=== PATIENT | male | born 1965 | race Caucasian/White ===

== ENCOUNTER → 2019-08-31 18:38 | Outpatient (ROUT) | payer OTHER, SELFPAY ==
[2019-08-31 19:14] LABS: Add Manual Diff / Slide Review NO; Basophils Absolute Auto 100 /uL (0-100); Basophils Percent Auto 0.9 % (0-2); Eosinophils Absolute Auto 100 /uL (0-450); Eosinophils Percent Auto 1.4 % (2-4); Hemoglobin 15.8 g/dL (13.5-17.5); Lymphocytes Absolute Auto 2000 /uL (1100-4500); Lymphocytes Percent Auto 32.8 % (25-40); Mean Corpuscular HGB Conc 33.7 % (30-36); Mean Corpuscular Hemoglobin 31.1 PG (26-34); Mean Corpuscular Volume 92.4 fL (80-100); Monocytes Absolute Auto 500 /uL (0-900); Monocytes Percent Auto 8.5 % (3-14); Neutrophils Absolute Auto 3400 /uL (1500-7000); Neutrophils Percent Auto 56.4 % (50-75); Platelet Count 277 X10^3/uL (150-400); Red Blood Cell Count 5.09 X10^6/uL (4.5-5.9); Red Cell Distribution Width 13.9 % (11.6-14.8)
[2019-08-31 19:37] LABS: Alanine Aminotransferase 29 IU/L (<50); Albumin 4.8 g/dL (3.5-5.0); Albumin Globulin Ratio 1.7 (1.0-2.8); Alkaline Phosphatase 65 U/L (38-126); Aspartate Aminotransferase 32 IU/L (17-59); BUN Creatinine Ratio 13.1 (6-22); Bilirubin Total 0.5 mg/dL (0.2-1.3); Blood Urea Nitrogen 14 mg/dL (9-20); Calcium 9.8 mg/dL (8.4-10.2); Carbon Dioxide 28 mmol/L (22-32); Chloride 105 mmol/L (98-107); Cholesterol 239 mg/dL (140-199); Estimated Glomerular Filt Rate > 60.0 mL/min (>60); Globulin 2.9 g/dL (1.7-4.1); Glucose 92 mg/dL (70-100); HDL Cholesterol 43 mg/dL (40-60); HEMOLYSIS < 15 (0-50); LDL Cholesterol Calculated 167 mg/dL (<100); Potassium 3.9 mmol/L (3.4-5.1); Sodium 142 mmol/L (137-145); Total Protein 7.7 g/dL (6.3-8.2); Triglycerides 146 mg/dL (35-150)
[2019-08-31 20:08] LABS: Prostate Specific Antigen 0.777 ng/mL (0.10-4.00); TSH w/ Reflex to FT4 3.11 uIU/mL (0.47-4.68)
== END ==
PROVIDERS: Visit Provider Internal Medicine
DX: Z00.00 Encounter for general adult medical examination without abnormal findings (principal); R53.83 Other fatigue
CPT/HCPCS: 80053; 80061; 84153; 84443; 85025

== ENCOUNTER → 2021-10-20 16:48 | Outpatient (CLI) | payer OTHER, SELFPAY ==
[2021-10-20 17:56] LABS: Hematocrit 46.7 % (41-53); Mean Corpuscular HGB Conc 34.2 % (30-36); Mean Corpuscular Hemoglobin 31.3 PG (26-34); Mean Corpuscular Volume 91.4 fL (80-100); Platelet Count 274 X10^3/uL (150-400); Red Blood Cell Count 5.11 X10^6/uL (4.5-5.9); White Blood Cell Count 7.3 X10^3/uL (4.5-11.0)
[2021-10-20 18:10] LABS: Alanine Aminotransferase 20 IU/L (<50); Albumin Globulin Ratio 1.7 (1.0-2.8); Alkaline Phosphatase 56 U/L (38-126); Aspartate Aminotransferase 29 IU/L (17-59); Bilirubin Total 0.6 mg/dL (0.2-1.3); Blood Urea Nitrogen 14 mg/dL (9-20); Calcium 9.7 mg/dL (8.4-10.2); Carbon Dioxide 32 mmol/L (22-32); Chloride 104 mmol/L (98-107); Cholesterol 286 mg/dL (140-199); Estimated Glomerular Filt Rate > 60 mL/min (>60); Glucose 87 mg/dL (70-100); HDL Cholesterol 47 mg/dL (40-60); HEMOLYSIS < 15 (0-50); LDL Cholesterol Calculated 211 mg/dL (<100); Sodium 143 mmol/L (137-145); Triglycerides 141 mg/dL (35-150)
[2021-10-20 18:40] LABS: TSH w/ Reflex to FT4 2.88 uIU/mL (0.47-4.68)
== END ==
PROVIDERS: PCP Internal Medicine; Referring Provider Internal Medicine; Visit Provider Internal Medicine
DX: E78.2 Mixed hyperlipidemia (principal); I10 Essential (primary) hypertension
CPT/HCPCS: 36415; 80053; 80061; 84443; 85027

== ENCOUNTER → 2021-12-08 11:00 | Outpatient (CLI) | payer OTHER, SELFPAY | PROVIDERS: PCP Internal Medicine; Referring Provider Internal Medicine; Visit Provider Internal Medicine | DX: Z53.20 Procedure and treatment not carried out because of patient's decision for unspecified reasons (principal) ==

== ENCOUNTER → 2023-04-13 16:08 | Outpatient (CLI) | payer OTHER, SELFPAY ==
[2023-04-13 17:57] LABS: Aspartate Aminotransferase 28 IU/L (17-59); BUN Creatinine Ratio 16.5 (6-22); Blood Urea Nitrogen 18 mg/dL (9-20); Calcium 9.4 mg/dL (8.4-10.2); Carbon Dioxide 31 mmol/L (22-32); Chloride 102 mmol/L (98-107); Cholesterol 228 mg/dL (140-199); Estimated Glomerular Filt Rate > 60 mL/min (>60); Glucose 90 mg/dL (70-100); HDL Cholesterol 38 mg/dL (40-60); HEMOLYSIS < 15 (0-50); LDL Cholesterol Calculated 163 mg/dL (<100); Potassium 3.8 mmol/L (3.4-5.1); Sodium 139 mmol/L (137-145); Triglycerides 136 mg/dL (35-150)
[2023-04-13 18:28] LABS: Prostate Specific Antigen Scrn 0.747 ng/mL (0.1-4.0)
== END ==
PROVIDERS: PCP Internal Medicine; Referring Provider Internal Medicine; Visit Provider Internal Medicine
DX: Z00.00 Encounter for general adult medical examination without abnormal findings (principal); E78.2 Mixed hyperlipidemia; I10 Essential (primary) hypertension; Z12.5 Encounter for screening for malignant neoplasm of prostate
CPT/HCPCS: 36415; 80048; 80061; 84450; G0103

== ENCOUNTER → 2024-10-16 15:34 | Outpatient (CLI) | payer OTHER, SELFPAY ==
[2024-10-16 17:26] LABS: HEMOLYSIS < 15 (0-50)
[2024-10-16 17:30] LABS: Aspartate Aminotransferase 36 IU/L (17-59); BUN Creatinine Ratio 14.2 (6-22); Blood Urea Nitrogen 15 mg/dL (9-20); Calcium 9.7 mg/dL (8.4-10.2); Carbon Dioxide 28 mmol/L (22-32); Chloride 103 mmol/L (98-107); Cholesterol 164 mg/dL (140-199); Estimated Glomerular Filt Rate > 60 mL/min (>60); Glucose 85 mg/dL (70-99); HDL Cholesterol 46 mg/dL (40-60); LDL Cholesterol Calculated 97 mg/dL (<100); Potassium 4.1 mmol/L (3.4-5.1); Sodium 141 mmol/L (137-145); Triglycerides 105 mg/dL (35-150)
[2024-10-16 17:31] LABS: Creatinine Urine Random 99.71 mg/dL
[2024-10-16 17:39] LABS: Microalbumin Urine Random < 0.6 mg/dL (0-1.6)
== END ==
PROVIDERS: PCP Internal Medicine; Referring Provider Internal Medicine; Visit Provider Internal Medicine
DX: Z12.5 Encounter for screening for malignant neoplasm of prostate (principal); I51.7 Cardiomegaly; I10 Essential (primary) hypertension; E78.2 Mixed hyperlipidemia
CPT/HCPCS: 36415; 80048; 80061; 82043; 82570; 84450; G0103

== ENCOUNTER → 2024-11-22 15:51 | Outpatient (CLI) | payer OTHER, SELFPAY ==
--- NOTE | 2024-11-22 15:53 | DI.ECHO.S_ITS ---
[facility] : : [address] : : [place] : : [id number] : : Phone: [phone] Echocardiogram Report + + :Name: TRELL CORDERO Study Date: 11/22/2024 Height: 66 in : :[facility] ReadingLocation: Weight: 165 lb : : Gender: Male BSA: 1.8 m2 : :: 1965 Age: 59 yrs BP: 144/103 mmHg: :Reason For Study: HYPERTENSION : :Ordering Physician: ANALILIA, : :ROSELINE Performed By: Patrick Niño : :Referring: ROSELINE BILLINGSLEY : + + Interpretation Summary The left ventricle is normal in size. The ejection fraction is estimated to be 60-65%. There are no focal wall motion abnormalities. Diastolic parameters suggest probable normal left ventricular diastolic function and normal filling pressures. The right ventricle is normal in size and function. The right ventricular systolic pressure is estimated to be at least 24 mmHg based on an estimated right atrial pressure of 3 mm Hg. Both atria are normal in size. There is no significant valvular heart disease. The aortic root is mildly dilated. Procedure: A two-dimensional transthoracic echocardiogram with color flow and Doppler was performed. The study quality was technically good. There is no prior echocardiogram noted for this patient. The patient was in normal sinus rhythm during the exam. Left Ventricle: The left ventricle is normal in size. Left ventricular wall thickness is normal. There is no ventricular septal defect visualized. The ejection fraction is estimated to be 60-65%. There are no focal wall motion abnormalities. Diastolic parameters suggest probable normal left ventricular diastolic function and normal filling pressures. Right Ventricle: The right ventricle is normal in size and function. Atria: Both atria are normal in size. There is no Doppler evidence for an interatrial shunt. Mitral Valve: The mitral valve leaflets appear normal. There is no evidence of stenosis, fluttering, or prolapse. There is trace mitral regurgitation. Aortic Valve: The aortic valve is trileaflet. The aortic valve opens well. No aortic regurgitation is present. Tricuspid Valve: The tricuspid valve leaflets are thin and pliable. There is trace tricuspid regurgitation. The right ventricular systolic pressure is estimated to be at least 24 mmHg based on an estimated right atrial pressure of 3 mm Hg. Pulmonic Valve: The pulmonic valve is normal in structure and function. There is trace pulmonic regurgitation. There is no significant valvular heart disease. Great Vessels: The aortic root is mildly dilated. The dimensions of the ascending aorta are normal. The pulmonary artery is normal size. The IVC is of normal diameter and collapses greater than 50% with a sniff. This suggests a low right atrial pressure of 3 mm Hg. Pericardium/ Pleura There is no pericardial effusion. There is no pleural effusion. MMode/2D Measurements & Calculations LVIDd: 4.7 cm LVOT diam: 2.2 cm LVIDs: 3.2 cm Ao root diam: 3.8 cm FS: 30.3 % asc Aorta Diam: 3.3 cm EPSS: 0.61 cm Ao Arch Diam (Prox Trans): 1.6 cm IVSd: 0.98 cm LVPWd: 0.92 cm LV clifton. diameter/BSA (cm/m^2): 2.5 LV sys. diameter/BSA (cm/m^2): 1.8 LA A2 area: 18.8 cm2 RA long axis: 4.9 cm LA A4 area: 14.6 cm2 RA area: 16.4 cm2 LA length (vol): 4.7 cm RA vol: 47.0 ml LA vol: 49.5 ml RA : 25.5 ml/m2 LA vol index: 26.8 ml/m2 IVC diam: 1.2 cm RVD1 (basal): 3.8 cm RVD2 (mid): 3.3 cm TAPSE: 2.7 cm Doppler Measurements & Calculations Ao V2 max: 132.6 cm/sec LVOT Max Mikie: 124.9 cm/sec Ao V2 mean: 92.4 cm/sec LV V1 max P.2 mmHg Ao max P.0 mmHg LV V1 VTI: 25.1 cm Ao mean P.8 mmHg ALEJA(I,D): 3.2 cm2 Ao V2 VTI: 29.5 cm ALEJA(V,D): 3.5 cm2 sev ratio: 0.85 ALEJA indexed to BSA (cm^2/m^2): 1.7 MV E max mikie: 81.6 cm/sec TR max mikie: 230.0 cm/sec MV A max mikie: 65.0 cm/sec TR max P.2 mmHg MV E/A: 1.3 PA V2 max: 113.1 cm/sec Med Peak E' Mikie: 9.5 cm/sec PA V2 mean: 78.3 cm/sec E/E' med: 8.6 PA mean P.8 mmHg Lat Peak E' Mikie: 11.2 cm/sec PA pr(Accel): 43.0 mmHg E/E' lat: 7.3 E/e' average: 8.0 MV dec time: 0.16 sec SV(LVOT): 94.0 ml Reading Physician:06:59 AM
== END ==
LOC: ECHO 15:52
PROVIDERS: PCP Internal Medicine; Referring Provider Internal Medicine; Visit Provider Internal Medicine
DX: I77.810 Thoracic aortic ectasia (principal); I51.7 Cardiomegaly; I10 Essential (primary) hypertension
CPT/HCPCS: 93306